=== PATIENT | female | born 1985 | race Asian ===

== ENCOUNTER 2022-05-28 08:47 | Inpatient (IN) ==
[2022-05-28] MEDS ORDERED: LIDOCAINE 1% LOCAL 20 ML VIAL INFIL PRN (09:51)
[2022-05-28] MEDS ORDERED: OXYTOCIN 30 UNITS/500 ML BAG IV PRN (09:51)
--- NOTE | 2022-05-28 09:55 | History & Physical Report ---
Date of Service May 28, 2022 Assessment & Plan (1) Elderly primigravida: Plan: Admit to L&D. Labs, EFM/toco, IV. Desires epidural. History of Present Illness Chief Complaint: contractions Primary Care Provider: NO PCP 36yo @ 39 09/05, presents with contractions since yesterday. About 5-8 min, but increasing in intensity. Yesterday, was seen at L&D and 1cm/100%. AMA Weekly NST's @ 36 weeks Hx thyroid issues 2018-pt states normal since Flu shot given 01/22/22 - [place] Allergies Allergy/AdvReac Type Severity Reaction Status Date / Time Penicillins Allergy Unknown Verified 05/28/22 08:57 shellfish derived Allergy Rash Verified 05/28/22 08:57 Home Medications Medication Instructions Recorded Confirmed Type prenat.vits,candy,htp-dhhn-aymdc 1 tab PO DAILY 05/28/22 05/28/22 History Patient History Medical History Miscarriage Thyroid disease Surgical History No history of previous surgery Family History Mother Diabetes Father Diabetes Grandmother (Paternal) Diabetes Denies family history of Ovarian cancer Breast cancer Colorectal cancer Social History Smoking Status: Never smoker Hx Alcohol Use: No Hx Substance Use: No Preferred Language: Mandarin Citizen Of [place] Communication Ability: Effective 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: No Beliefs That Will Affect Care: None marital status: marital status details: Sarah Salazar (29) [phone] Current Living Situation: Spouse Current Living Situation Comment: lives with spouse, no pets current occupational status: employed 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 Other Information That Helps Us Care for You: No Feels Safe at Home: Yes Safety Concerns: Feels Safe At This Time Assistive Devices: None Review of Systems All systems reviewed & are unremarkable except as noted in HPI & below Physical Exam Physical Exam: FHT Cat [address] [place] occasional SVE 6/100/-1, bulging membranes Constitutional: WD/WN, vitals as above Respiratory: normal respiratory effort, lungs clear to auscultation no respiratory distress Cardiovascular: Rate/Rhythm: regular rate and regular rhythm Gastrointestinal (Abdomen): Inspection/Auscultation: abdomen normal to inspection Percussion/Palpation: abdomen soft; abdomen nontender Gravid. No s/s chorio or abruption. Skin: no rashes, warm and dry Psychiatric: A+Ox3, euthymic affect Results & Data ([facility]) Vital Signs (Past 12 Hours) Vital Signs Temp Pulse Resp BP 05/28/22 08:55 36.8 C 102 H 20 123/60 Code Status & VTE Plan VTE Prophylaxis Plan VTE Prophylaxis will be ordered: No Coding Level of Care Code None Diagnoses Elderly primigravida O09.519
[2022-05-28] MEDS: LACTATED RINGER'S 1,000 ML IV PRN ×4 (10:00→23:55)
[2022-05-28] MEDS ORDERED: NALOXONE HCL 0.4 MG/1 ML VIAL/CARP IV PRN (10:07)
[2022-05-28] MEDS ORDERED: NALBUPHINE HCL INJ 10 MG/ML AMP IV PRN (10:07)
[2022-05-28] MEDS ORDERED: ePHEDrine sulfate 50 MG/ML AMP IV PRN (10:07)
[2022-05-28] MEDS ORDERED: NALOXONE HCL 1 MG in SODIUM CHLORIDE 0.9% 1000ML 1,000 ML IV PRN (10:07)
[2022-05-28] MEDS ORDERED: diphenhydrAMINE 50 MG/ML VIAL IV PRN (10:07)
[2022-05-28] MEDS ORDERED: fentaNYL 2MCG/ML ROPIVACAINE 1.25MG/ML 100 ML BAG EPI PRN (10:07)
[2022-05-28] MEDS ORDERED: ONDANSETRON INJ 2 MG/ML 2 ML VIAL IV PRN (10:07)
[2022-05-28] MEDS ORDERED: LIDOCAINE 2%/EPINEPHRINE 1:200,000 20 ML SDV ONE (10:10)
[2022-05-28] MEDS ORDERED: BUPIVACAINE 0.25% 30 ML VIAL ONE ×2 (10:10→23:13)
[2022-05-28] MEDS ORDERED: SODIUM CHLORIDE 0.9% INJ 10 ML VIAL ONE (10:10)
[2022-05-28] MEDS ORDERED: fentaNYL citrate 100 MCG/2 ML VIAL ONE (10:10)
[2022-05-28] MEDS ORDERED: ePHEDrine sulfate 50 MG/ML AMP ONE (10:10)
--- NOTE | 2022-05-28 10:10 | Anesthesiology Consultation ---
Date of Service May 28, 2022 Assessment & Plan (1) Encounter for pre-operative examination: Chart Review Chart Review: Patient NOT seen in Pre Admission Testing and Acceptable Risk for Labor Epidural Consults Requested none History Height/Weight Height: 5 ft 2 in Weight: 69.4 kg Allergies Allergy/AdvReac Type Severity Reaction Status Date / Time Penicillins Allergy Unknown Verified 05/28/22 08:57 shellfish derived Allergy Rash Verified 05/28/22 08:57 Medications Home Medications Medication Instructions Recorded Confirmed Last Taken prenat.vits,candy,lva-qxhu-zakfs 1 tab PO DAILY 05/28/22 05/28/22 05/28/22 07:00 Active Medications Generic Name Dose Route Start Last Admin Trade Name Freq PRN Reason Stop Dose Admin Lactated Ringer's 1,000 mls @ 125 mls/hr 05/28/22 09:51 05/28/22 10:00 Lr IV 05/30/22 09:50 999 mls/hr .Q8H PRN Administration L&D Protocol Protocol Past Medical History Medical History Miscarriage Thyroid disease Exercise / Class Metabolic Activity II 4-5 Yardwork/Stairs/Walk up hill Past Family History Family History Mother Diabetes Father Diabetes Grandmother (Paternal) Diabetes Denies family history of Ovarian cancer Breast cancer Colorectal cancer Past Surgical History Surgical History No history of previous surgery Past Anesthesia History No Hx of Anesthesia Complications and No Family Hx of Anesthesia Complications History of PONV No Hx of PONV and No Hx of Motion Sickness Social History Smoking Status: Never smoker Hx Alcohol Use: No Hx Substance Use: No substance use type: does not use Physical Exam Vital Signs Last Vital Signs Temp 36.8 C 05/28/22 08:55 Pulse 99 H 05/28/22 10:47 Resp 20 05/28/22 08:55 BP 116/71 05/28/22 10:47 Pulse Ox 97 05/28/22 10:43 Testing Laboratory Results 05/28/22 10:03
[2022-05-28] MEDS ORDERED: fentaNYL 2MCG/ML ROPIVACAINE 1.25MG/ML 100 ML BAG EPI ONE (10:11)
[2022-05-28 10:21] LABS: Hematocrit (blood only) 36.8 % (37.0-47.0); Mean Corpuscular Hemoglobin 33.2 pg (25.0-34.0); Mean Corpuscular Hgb Conc 35.3 g/dL (32.0-36.0); Mean Corpuscular Volume 93.9 fL (80.0-100.0); Mean Platelet Volume 10.7 fL (9.4-12.4); Platelet Count 236 K/uL (130-400); RDW Coefficient of Variation 12.9 % (11.5-14.5); RDW Standard Deviation 43.6 fL (36.4-46.3); Red Blood Count 3.92 M/uL (4.20-5.40); White Blood Count 10.84 K/ul (4.8-10.8)
[2022-05-28] MEDS ORDERED: CALCIUM CARBONATE 500 MG CHEWABLE TAB PO ONE (19:33)
[2022-05-28] MEDS ORDERED: NURSING L&D Epidural Breakthrough Pain Update ONE (22:03)
--- NOTE | 2022-05-28 23:04 | Labor Progress Brief Note ---
Date of Service May 28, 2022 Subjective Uncomfortable, feeling low back pain constantly. Also uncomfortable with contractions. FHT 150s, mod kati, +accels. Variable decels, not recurrent. SVE 7-8/100/+1 per RN Pt requesting epidural redose. As long as she continues to make cervical change, she requests to avoid pitocin for augmentation - I think this is reasonable, given that she has been making cervical change. Assessment & Plan Admission and Anticipated Discharge Date Admission Date: May 28, 2022 Results & Data ([facility]) Vital Signs (Past 12 Hours) Vital Signs Temp Pulse Resp BP Pulse Ox 05/28/22 22:59 95 05/28/22 22:59 104 H 05/28/22 22:54 96 05/28/22 22:54 100 H 05/28/22 22:49 96 05/28/22 22:49 100 H 05/28/22 22:30 18 05/28/22 22:30 18 05/28/22 22:44 97 05/28/22 22:44 96 H 05/28/22 22:39 97 05/28/22 22:39 100 H 05/28/22 22:34 96 05/28/22 22:34 104 H 05/28/22 22:28 96 05/28/22 22:28 101 H 05/28/22 22:23 96 05/28/22 22:23 91 H 05/28/22 22:20 88 05/28/22 22:20 119/64 05/28/22 22:18 95 05/28/22 22:18 95 H 05/28/22 22:00 20 05/28/22 22:00 20 05/28/22 22:13 95 05/28/22 22:13 90 05/28/22 22:08 97 05/28/22 22:08 90 05/28/22 22:06 93 H 05/28/22 22:06 116/79 05/28/22 22:03 95 05/28/22 22:03 93 H 05/28/22 21:58 97 05/28/22 21:58 88 05/28/22 21:53 96 05/28/22 21:53 88 05/28/22 21:50 93 H 05/28/22 21:50 123/66 05/28/22 21:48 96 05/28/22 21:48 93 H 05/28/22 21:43 98 05/28/22 21:43 93 H 05/28/22 21:30 18 05/28/22 21:30 18 05/28/22 21:38 98 05/28/22 21:38 93 H 05/28/22 21:36 88 05/28/22 21:36 119/70 05/28/22 21:33 96 05/28/22 21:33 88 05/28/22 21:28 96 05/28/22 21:28 88 05/28/22 21:23 96 05/28/22 21:23 96 H 05/28/22 21:19 88 05/28/22 21:19 107/65 05/28/22 21:18 96 05/28/22 21:18 85 05/28/22 21:13 96 05/28/22 21:13 85 05/28/22 21:08 96 05/28/22 21:08 86 05/28/22 21:04 88 05/28/22 21:04 110/69 05/28/22 21:03 97 05/28/22 21:03 81 05/28/22 21:00 18 05/28/22 21:00 37.3 C 18 05/28/22 20:58 96 05/28/22 20:58 83 05/28/22 20:53 96 05/28/22 20:53 84 05/28/22 20:51 83 05/28/22 20:51 112/68 05/28/22 20:48 96 05/28/22 20:48 88 05/28/22 20:43 94 05/28/22 20:43 97 H 05/28/22 20:38 95 05/28/22 20:38 85 05/28/22 20:35 85 05/28/22 20:35 121/73 05/28/22 20:33 95 05/28/22 20:33 89 05/28/22 20:30 18 05/28/22 20:30 18 05/28/22 20:28 96 05/28/22 20:28 99 H 05/28/22 20:23 98 05/28/22 20:23 84 05/28/22 20:18 98 05/28/22 20:18 89 05/28/22 20:13 97 05/28/22 20:13 81 05/28/22 20:08 97 05/28/22 20:08 81 05/28/22 20:06 78 05/28/22 20:06 117/70 05/28/22 20:00 18 05/28/22 20:00 18 05/28/22 20:03 96 05/28/22 20:03 90 05/28/22 19:58 95 05/28/22 19:58 87 05/28/22 19:53 94 05/28/22 19:53 82 05/28/22 19:50 87 05/28/22 19:50 111/60 05/28/22 19:48 95 05/28/22 19:48 80 05/28/22 19:43 95 05/28/22 19:43 83 05/28/22 19:38 96 05/28/22 19:38 89 05/28/22 19:33 95 05/28/22 19:33 87 05/28/22 19:34 88 05/28/22 19:34 110/64 05/28/22 19:28 96 05/28/22 19:28 83 05/28/22 19:23 95 05/28/22 19:23 83 05/28/22 19:19 88 05/28/22 19:19 106/62 05/28/22 19:18 98 05/28/22 19:18 93 H 05/28/22 19:13 96 05/28/22 19:13 85 05/28/22 19:08 96 05/28/22 19:08 81 05/28/22 19:00 18 05/28/22 19:00 37.1 C 18 05/28/22 19:03 96 05/28/22 19:03 84 05/28/22 19:04 81 05/28/22 19:04 111/64 05/28/22 18:58 96 05/28/22 18:58 95 H 05/28/22 18:53 97 05/28/22 18:53 86 05/28/22 18:49 88 05/28/22 18:49 114/68 05/28/22 18:48 96 05/28/22 18:48 83 05/28/22 18:43 98 05/28/22 18:43 87 05/28/22 18:38 95 05/28/22 18:38 87 05/28/22 18:34 91 H 05/28/22 18:34 122/71 05/28/22 18:33 97 05/28/22 18:33 86 05/28/22 18:30 20 05/28/22 18:30 20 05/28/22 18:28 95 05/28/22 18:28 96 H 05/28/22 18:23 93 05/28/22 18:23 85 05/28/22 18:22 85 05/28/22 18:22 115/68 05/28/22 18:18 93 05/28/22 18:18 88 05/28/22 18:13 92 05/28/22 18:13 89 05/28/22 18:08 94 05/28/22 18:08 85 05/28/22 18:07 88 05/28/22 18:07 118/68 05/28/22 18:03 94 05/28/22 18:03 92 H 05/28/22 17:58 93 05/28/22 17:58 90 05/28/22 17:53 94 05/28/22 17:53 88 05/28/22 17:51 87 05/28/22 17:51 123/67 05/28/22 17:30 20 05/28/22 17:30 20 05/28/22 17:48 94 05/28/22 17:48 89 05/28/22 17:00 20 05/28/22 17:00 20 05/28/22 17:43 95 05/28/22 17:43 86 05/28/22 17:38 97 05/28/22 17:38 86 05/28/22 17:35 92 H 05/28/22 17:35 113/68 05/28/22 17:33 95 05/28/22 17:33 85 05/28/22 17:28 96 05/28/22 17:28 91 H 05/28/22 17:23 97 05/28/22 17:23 91 H 05/28/22 17:21 89 05/28/22 17:21 103/61 05/28/22 17:18 96 05/28/22 17:18 97 H 05/28/22 17:13 96 05/28/22 17:13 88 05/28/22 17:08 96 05/28/22 17:08 92 H 05/28/22 17:06 92 H 05/28/22 17:06 114/79 05/28/22 17:03 96 05/28/22 17:03 91 H 05/28/22 16:58 96 05/28/22 16:58 105 H 05/28/22 16:30 20 05/28/22 16:30 37.1 C 20 05/28/22 16:00 20 05/28/22 16:00 20 05/28/22 16:53 96 05/28/22 16:53 99 H 05/28/22 16:51 94 H 05/28/22 16:51 127/75 05/28/22 16:48 95 05/28/22 16:48 92 H 05/28/22 16:43 97 05/28/22 16:43 93 H 05/28/22 16:38 97 05/28/22 16:38 91 H 05/28/22 16:34 93 H 05/28/22 16:34 114/62 05/28/22 16:33 96 05/28/22 16:33 89 05/28/22 16:28 94 05/28/22 16:28 87 05/28/22 16:23 96 05/28/22 16:23 86 05/28/22 16:18 95 05/28/22 16:18 88 05/28/22 16:19 90 05/28/22 16:19 110/60 05/28/22 16:13 94 05/28/22 16:13 91 H 05/28/22 16:08 96 05/28/22 16:08 86 05/28/22 16:04 89 05/28/22 16:04 109/64 05/28/22 16:03 96 05/28/22 16:03 86 05/28/22 15:58 95 05/28/22 15:58 87 05/28/22 15:53 96 05/28/22 15:53 89 05/28/22 15:50 91 H 05/28/22 15:50 123/71 05/28/22 15:48 96 05/28/22 15:48 91 H 05/28/22 15:43 97 05/28/22 15:43 96 H 05/28/22 15:38 98 05/28/22 15:38 98 H 05/28/22 15:36 107 H 05/28/22 15:36 118/75 05/28/22 15:30 20 05/28/22 15:30 20 05/28/22 15:33 96 05/28/22 15:33 93 H 05/28/22 15:28 94 05/28/22 15:28 95 H 05/28/22 15:23 94 05/28/22 15:23 89 05/28/22 15:19 95 H 05/28/22 15:19 116/63 05/28/22 15:18 95 05/28/22 15:18 96 H 05/28/22 15:13 94 05/28/22 15:13 97 H 05/28/22 15:08 92 05/28/22 15:08 91 H 05/28/22 15:04 82 05/28/22 15:04 114/56 L 05/28/22 15:03 95 05/28/22 15:03 86 05/28/22 15:00 20 05/28/22 15:00 20 05/28/22 14:58 95 05/28/22 14:58 80 05/28/22 14:53 97 05/28/22 14:53 83 05/28/22 14:49 88 05/28/22 14:49 107/68 05/28/22 14:48 96 05/28/22 14:48 90 05/28/22 14:43 95 05/28/22 14:43 86 05/28/22 14:38 96 05/28/22 14:38 92 H 05/28/22 14:30 20 05/28/22 14:30 37.1 C 20 05/28/22 14:35 89 05/28/22 14:35 120/72 05/28/22 14:00 20 05/28/22 14:00 20 05/28/22 14:33 95 05/28/22 14:33 91 H 05/28/22 13:30 20 05/28/22 13:30 20 05/28/22 14:28 95 05/28/22 14:28 102 H 05/28/22 14:23 95 05/28/22 14:23 88 05/28/22 14:20 94 05/28/22 14:20 90 05/28/22 14:20 115/68 05/28/22 14:18 97 05/28/22 14:18 95 H 05/28/22 14:13 95 05/28/22 14:14 94 05/28/22 14:13 94 H 05/28/22 14:14 95 H 05/28/22 14:08 94 05/28/22 14:08 90 05/28/22 14:08 94 05/28/22 14:08 88 05/28/22 14:06 86 05/28/22 14:06 110/62 05/28/22 14:03 94 05/28/22 14:03 87 05/28/22 14:02 94 05/28/22 14:02 91 H 05/28/22 13:58 95 05/28/22 13:58 87 05/28/22 13:55 94 05/28/22 13:55 96 H 05/28/22 13:53 95 05/28/22 13:53 90 05/28/22 13:51 89 05/28/22 13:51 110/67 05/28/22 13:48 95 05/28/22 13:48 89 05/28/22 13:43 96 05/28/22 13:43 85 05/28/22 13:30 20 05/28/22 13:30 20 05/28/22 13:38 95 05/28/22 13:39 94 05/28/22 13:38 88 05/28/22 13:39 91 H 05/28/22 13:36 86 05/28/22 13:36 115/68 05/28/22 13:33 95 05/28/22 13:33 83 05/28/22 13:32 94 05/28/22 13:32 91 H 05/28/22 13:28 96 05/28/22 13:28 90 05/28/22 13:23 97 05/28/22 13:23 87 05/28/22 13:19 85 05/28/22 13:19 116/69 05/28/22 13:18 97 05/28/22 13:18 83 05/28/22 13:13 96 05/28/22 13:13 88 05/28/22 13:08 95 05/28/22 13:08 89 05/28/22 13:00 20 05/28/22 13:00 20 05/28/22 13:04 86 05/28/22 13:04 109/64 05/28/22 13:03 96 05/28/22 13:03 82 05/28/22 13:01 94 05/28/22 13:01 86 05/28/22 12:58 97 05/28/22 12:58 83 05/28/22 12:53 96 05/28/22 12:53 84 05/28/22 12:49 84 05/28/22 12:49 108/61 05/28/22 12:48 95 05/28/22 12:48 83 05/28/22 12:46 94 05/28/22 12:46 87 05/28/22 12:43 95 05/28/22 12:43 86 05/28/22 12:38 93 05/28/22 12:38 88 05/28/22 12:34 84 05/28/22 12:34 107/59 L 05/28/22 12:33 94 05/28/22 12:33 85 05/28/22 12:28 94 05/28/22 12:28 89 05/28/22 12:25 94 05/28/22 12:25 89 05/28/22 12:23 96 05/28/22 12:23 87 05/28/22 12:20 84 05/28/22 12:20 113/62 05/28/22 12:19 94 05/28/22 12:19 88 05/28/22 12:18 95 05/28/22 12:18 88 05/28/22 12:00 18 05/28/22 12:00 18 05/28/22 12:13 96 05/28/22 12:13 83 05/28/22 12:10 92 05/28/22 12:10 92 H 05/28/22 12:08 96 05/28/22 12:08 97 H 05/28/22 12:06 90 05/28/22 12:06 125/73 05/28/22 12:03 98 05/28/22 12:03 100 H 05/28/22 11:58 96 05/28/22 11:58 95 H 05/28/22 11:55 94 05/28/22 11:55 97 H 05/28/22 11:53 95 05/28/22 11:53 97 H 05/28/22 11:49 99 H 05/28/22 11:49 110/64 05/28/22 11:48 96 05/28/22 11:48 100 H 05/28/22 11:43 95 05/28/22 11:43 93 H 05/28/22 11:38 96 05/28/22 11:38 92 H 05/28/22 11:37 89 05/28/22 11:37 119/69 05/28/22 11:33 96 05/28/22 11:33 93 H 05/28/22 11:30 20 05/28/22 11:30 20 05/28/22 11:28 96 05/28/22 11:28 92 H 05/28/22 11:23 97 05/28/22 11:23 94 H 05/28/22 11:21 91 H 05/28/22 11:21 122/67 05/28/22 11:18 95 05/28/22 11:19 94 05/28/22 11:18 93 H 05/28/22 11:19 91 H 05/28/22 11:13 96 05/28/22 11:13 94 H 05/28/22 11:08 96 05/28/22 11:08 99 H 05/28/22 11:04 108 H 05/28/22 11:04 103/56 L 05/28/22 11:03 97 05/28/22 11:03 110 H Coding Level of Care Code None
--- NOTE | 2022-05-28 23:36 | Communication Note ---
Date of Service: May 28, 2022 pt with increased pain. bolused 10ml of 0.25% bupivicaine in divided doses with pt on monitor. vss. pain much improved. cervix check by nurse showed pt was 9.5cm.
--- NOTE | 2022-05-29 00:48 | Labor Progress Brief Note ---
Date of Service May 29, 2022 Subjective Comfortable after epidural re-dose. FHT 150s, occasional late decels, not recurrent. Patient [place]. [place] [address]00/+1 Will start pushing. Assessment & Plan Admission and Anticipated Discharge Date Admission Date: May 28, 2022 Results & Data ([facility]) Vital Signs (Past 12 Hours) Vital Signs Temp Pulse Resp BP Pulse Ox 05/29/22 00:39 132 H 99 05/29/22 00:35 99 H 113/57 L 05/29/22 00:34 100 H 100 05/29/22 00:29 91 H 100 05/29/22 00:24 85 99 05/29/22 00:22 91 H 102/58 L 05/29/22 00:19 78 100 05/29/22 00:14 103 H 100 05/29/22 00:09 86 100 05/29/22 00:04 88 91/55 L 100 05/29/22 00:00 18 05/29/22 00:00 18 05/28/22 23:59 100 05/28/22 23:59 88 05/28/22 23:54 100 05/28/22 23:54 80 05/28/22 23:49 98 05/28/22 23:49 91 H 05/28/22 23:50 90 05/28/22 23:50 92/55 L 05/28/22 23:30 20 05/28/22 23:30 20 05/28/22 23:44 98 05/28/22 23:44 84 05/28/22 23:39 99 05/28/22 23:39 106 H 05/28/22 23:00 22 05/28/22 23:00 37.4 C 22 05/28/22 23:34 96 05/28/22 23:34 95 H 05/28/22 23:35 93 H 05/28/22 23:35 107/56 L 05/28/22 23:29 97 05/28/22 23:29 93 H 05/28/22 23:24 95 05/28/22 23:24 96 H 05/28/22 23:24 95 H 05/28/22 23:24 122/70 05/28/22 23:21 98 H 05/28/22 23:21 122/59 L 05/28/22 23:19 96 05/28/22 23:19 108 H 05/28/22 23:17 110 H 05/28/22 23:17 164/66 H 05/28/22 23:14 96 05/28/22 23:14 101 H 05/28/22 23:09 96 05/28/22 23:09 98 H 05/28/22 23:04 96 05/28/22 23:04 104 H 05/28/22 22:59 95 05/28/22 22:59 104 H 05/28/22 22:54 96 05/28/22 22:54 100 H 05/28/22 22:49 96 05/28/22 22:49 100 H 05/28/22 22:30 18 05/28/22 22:30 18 05/28/22 22:44 97 05/28/22 22:44 96 H 05/28/22 22:39 97 05/28/22 22:39 100 H 05/28/22 22:34 96 05/28/22 22:34 104 H 05/28/22 22:28 96 05/28/22 22:28 101 H 05/28/22 22:23 96 05/28/22 22:23 91 H 05/28/22 22:20 88 05/28/22 22:20 119/64 05/28/22 22:18 95 05/28/22 22:18 95 H 05/28/22 22:00 20 05/28/22 22:00 20 05/28/22 22:13 95 05/28/22 22:13 90 05/28/22 22:08 97 05/28/22 22:08 90 05/28/22 22:06 93 H 05/28/22 22:06 116/79 05/28/22 22:03 95 05/28/22 22:03 93 H 05/28/22 21:58 97 05/28/22 21:58 88 05/28/22 21:53 96 05/28/22 21:53 88 05/28/22 21:50 93 H 05/28/22 21:50 123/66 05/28/22 21:48 96 05/28/22 21:48 93 H 05/28/22 21:43 98 05/28/22 21:43 93 H 05/28/22 21:30 18 05/28/22 21:30 18 05/28/22 21:38 98 05/28/22 21:38 93 H 05/28/22 21:36 88 05/28/22 21:36 119/70 05/28/22 21:33 96 05/28/22 21:33 88 05/28/22 21:28 96 05/28/22 21:28 88 05/28/22 21:23 96 05/28/22 21:23 96 H 05/28/22 21:19 88 05/28/22 21:19 107/65 05/28/22 21:18 96 05/28/22 21:18 85 05/28/22 21:13 96 05/28/22 21:13 85 05/28/22 21:08 96 05/28/22 21:08 86 05/28/22 21:04 88 05/28/22 21:04 110/69 05/28/22 21:03 97 05/28/22 21:03 81 05/28/22 21:00 18 05/28/22 21:00 37.3 C 18 05/28/22 20:58 96 05/28/22 20:58 83 05/28/22 20:53 96 05/28/22 20:53 84 05/28/22 20:51 83 05/28/22 20:51 112/68 05/28/22 20:48 96 05/28/22 20:48 88 05/28/22 20:43 94 05/28/22 20:43 97 H 05/28/22 20:38 95 05/28/22 20:38 85 05/28/22 20:35 85 05/28/22 20:35 121/73 05/28/22 20:33 95 05/28/22 20:33 89 05/28/22 20:30 18 05/28/22 20:30 18 05/28/22 20:28 96 05/28/22 20:28 99 H 05/28/22 20:23 98 05/28/22 20:23 84 05/28/22 20:18 98 05/28/22 20:18 89 05/28/22 20:13 97 05/28/22 20:13 81 05/28/22 20:08 97 05/28/22 20:08 81 05/28/22 20:06 78 05/28/22 20:06 117/70 05/28/22 20:00 18 05/28/22 20:00 18 05/28/22 20:03 96 05/28/22 20:03 90 05/28/22 19:58 95 05/28/22 19:58 87 05/28/22 19:53 94 05/28/22 19:53 82 05/28/22 19:50 87 05/28/22 19:50 111/60 05/28/22 19:48 95 05/28/22 19:48 80 05/28/22 19:43 95 05/28/22 19:43 83 05/28/22 19:38 96 05/28/22 19:38 89 05/28/22 19:33 95 05/28/22 19:33 87 05/28/22 19:34 88 05/28/22 19:34 110/64 05/28/22 19:28 96 05/28/22 19:28 83 05/28/22 19:23 95 05/28/22 19:23 83 05/28/22 19:19 88 05/28/22 19:19 106/62 05/28/22 19:18 98 05/28/22 19:18 93 H 05/28/22 19:13 96 05/28/22 19:13 85 05/28/22 19:08 96 05/28/22 19:08 81 05/28/22 19:00 18 05/28/22 19:00 37.1 C 18 05/28/22 19:03 96 05/28/22 19:03 84 05/28/22 19:04 81 05/28/22 19:04 111/64 05/28/22 18:58 96 05/28/22 18:58 95 H 05/28/22 18:53 97 05/28/22 18:53 86 05/28/22 18:49 88 05/28/22 18:49 114/68 05/28/22 18:48 96 05/28/22 18:48 83 05/28/22 18:43 98 05/28/22 18:43 87 05/28/22 18:38 95 05/28/22 18:38 87 05/28/22 18:34 91 H 05/28/22 18:34 122/71 05/28/22 18:33 97 05/28/22 18:33 86 05/28/22 18:30 20 05/28/22 18:30 20 05/28/22 18:28 95 05/28/22 18:28 96 H 05/28/22 18:23 93 05/28/22 18:23 85 05/28/22 18:22 85 05/28/22 18:22 115/68 05/28/22 18:18 93 05/28/22 18:18 88 05/28/22 18:13 92 05/28/22 18:13 89 05/28/22 18:08 94 05/28/22 18:08 85 05/28/22 18:07 88 05/28/22 18:07 118/68 05/28/22 18:03 94 05/28/22 18:03 92 H 05/28/22 17:58 93 05/28/22 17:58 90 05/28/22 17:53 94 05/28/22 17:53 88 05/28/22 17:51 87 05/28/22 17:51 123/67 05/28/22 17:30 20 05/28/22 17:30 20 05/28/22 17:48 94 05/28/22 17:48 89 05/28/22 17:00 20 05/28/22 17:00 20 05/28/22 17:43 95 05/28/22 17:43 86 05/28/22 17:38 97 05/28/22 17:38 86 05/28/22 17:35 92 H 05/28/22 17:35 113/68 05/28/22 17:33 95 05/28/22 17:33 85 05/28/22 17:28 96 05/28/22 17:28 91 H 05/28/22 17:23 97 05/28/22 17:23 91 H 05/28/22 17:21 89 05/28/22 17:21 103/61 05/28/22 17:18 96 05/28/22 17:18 97 H 05/28/22 17:13 96 05/28/22 17:13 88 05/28/22 17:08 96 05/28/22 17:08 92 H 05/28/22 17:06 92 H 05/28/22 17:06 114/79 05/28/22 17:03 96 05/28/22 17:03 91 H 05/28/22 16:58 96 05/28/22 16:58 105 H 05/28/22 16:30 20 05/28/22 16:30 37.1 C 20 05/28/22 16:00 20 05/28/22 16:00 20 05/28/22 16:53 96 05/28/22 16:53 99 H 05/28/22 16:51 94 H 05/28/22 16:51 127/75 05/28/22 16:48 95 05/28/22 16:48 92 H 05/28/22 16:43 97 05/28/22 16:43 93 H 05/28/22 16:38 97 05/28/22 16:38 91 H 05/28/22 16:34 93 H 05/28/22 16:34 114/62 05/28/22 16:33 96 05/28/22 16:33 89 05/28/22 16:28 94 05/28/22 16:28 87 05/28/22 16:23 96 05/28/22 16:23 86 05/28/22 16:18 95 05/28/22 16:18 88 05/28/22 16:19 90 05/28/22 16:19 110/60 05/28/22 16:13 94 05/28/22 16:13 91 H 05/28/22 16:08 96 05/28/22 16:08 86 05/28/22 16:04 89 05/28/22 16:04 109/64 05/28/22 16:03 96 05/28/22 16:03 86 05/28/22 15:58 95 05/28/22 15:58 87 05/28/22 15:53 96 05/28/22 15:53 89 05/28/22 15:50 91 H 05/28/22 15:50 123/71 05/28/22 15:48 96 05/28/22 15:48 91 H 05/28/22 15:43 97 05/28/22 15:43 96 H 05/28/22 15:38 98 05/28/22 15:38 98 H 05/28/22 15:36 107 H 05/28/22 15:36 118/75 05/28/22 15:30 20 05/28/22 15:30 20 05/28/22 15:33 96 05/28/22 15:33 93 H 05/28/22 15:28 94 05/28/22 15:28 95 H 05/28/22 15:23 94 05/28/22 15:23 89 05/28/22 15:19 95 H 05/28/22 15:19 116/63 05/28/22 15:18 95 05/28/22 15:18 96 H 05/28/22 15:13 94 05/28/22 15:13 97 H 05/28/22 15:08 92 05/28/22 15:08 91 H 05/28/22 15:04 82 05/28/22 15:04 114/56 L 05/28/22 15:03 95 05/28/22 15:03 86 05/28/22 15:00 20 05/28/22 15:00 20 05/28/22 14:58 95 05/28/22 14:58 80 05/28/22 14:53 97 05/28/22 14:53 83 05/28/22 14:49 88 05/28/22 14:49 107/68 05/28/22 14:48 96 05/28/22 14:48 90 05/28/22 14:43 95 05/28/22 14:43 86 05/28/22 14:38 96 05/28/22 14:38 92 H 05/28/22 14:30 20 05/28/22 14:30 37.1 C 20 05/28/22 14:35 89 05/28/22 14:35 120/72 05/28/22 14:00 20 05/28/22 14:00 20 05/28/22 14:33 95 05/28/22 14:33 91 H 05/28/22 13:30 20 05/28/22 13:30 20 05/28/22 14:28 95 05/28/22 14:28 102 H 05/28/22 14:23 95 05/28/22 14:23 88 05/28/22 14:20 94 05/28/22 14:20 90 05/28/22 14:20 115/68 05/28/22 14:18 97 05/28/22 14:18 95 H 05/28/22 14:13 95 05/28/22 14:14 94 05/28/22 14:13 94 H 05/28/22 14:14 95 H 05/28/22 14:08 94 05/28/22 14:08 90 05/28/22 14:08 94 05/28/22 14:08 88 05/28/22 14:06 86 05/28/22 14:06 110/62 05/28/22 14:03 94 05/28/22 14:03 87 05/28/22 14:02 94 05/28/22 14:02 91 H 05/28/22 13:58 95 05/28/22 13:58 87 05/28/22 13:55 94 05/28/22 13:55 96 H 05/28/22 13:53 95 05/28/22 13:53 90 05/28/22 13:51 89 05/28/22 13:51 110/67 05/28/22 13:48 95 05/28/22 13:48 89 05/28/22 13:43 96 05/28/22 13:43 85 05/28/22 13:30 20 05/28/22 13:30 20 05/28/22 13:38 95 05/28/22 13:39 94 05/28/22 13:38 88 05/28/22 13:39 91 H 05/28/22 13:36 86 05/28/22 13:36 115/68 05/28/22 13:33 95 05/28/22 13:33 83 05/28/22 13:32 94 05/28/22 13:32 91 H 05/28/22 13:28 96 05/28/22 13:28 90 05/28/22 13:23 97 05/28/22 13:23 87 05/28/22 13:19 85 05/28/22 13:19 116/69 05/28/22 13:18 97 05/28/22 13:18 83 05/28/22 13:13 96 05/28/22 13:13 88 05/28/22 13:08 95 05/28/22 13:08 89 05/28/22 13:00 20 05/28/22 13:00 20 05/28/22 13:04 86 05/28/22 13:04 109/64 01/27/23 13:03 96 05/28/22 13:03 82 05/28/22 13:01 94 05/28/22 13:01 86 05/28/22 12:58 97 05/28/22 12:58 83 05/28/22 12:53 96 05/28/22 12:53 84 05/28/22 12:49 84 05/28/22 12:49 108/61 05/28/22 12:48 95 05/28/22 12:48 83 05/28/22 12:46 94 05/28/22 12:46 87 Coding Level of Care Code None
[2022-05-29] MEDS: LACTATED RINGER'S 1,000 ML IV PRN (00:59)
--- NOTE | 2022-05-29 01:53 | History & Physical Bridge Note ---
Date of Service May 29, 2022 History & Physical Bridge Note I have examined the patient, reviewed the History & Physical and in the interval since the performance of the History & Physical I have noted the following changes of clinical significance: While pushing, patient developed recurrent deep late decelerations, unresponsive to resuscitative measures. station 2+, pushing effort good, but still at least 30 minutes to 1 hour from delivery. I recommended that she proceed to , informed consent discussed, she agreed.
[2022-05-29] MEDS ORDERED: ceFAZolin 2000MG 2,000 MG/15 ML SYR IV ONE (01:56)
[2022-05-29] MEDS ORDERED: CITRIC ACID/SODIUM CITRATE 15 ML UDC PO ONE (01:56)
[2022-05-29] MEDS ORDERED: MoRPHine SULFATE PF 1 MG/ML 10 ML AMP/VIAL ONE (01:58)
[2022-05-29] MEDS ORDERED: LACTATED RINGER'S 1,000 ML IV SCH (02:00)
[2022-05-29] MEDS ORDERED: PHENYLEPHRINE 100MCG/ML 5ML SYR ONE (02:31)
[2022-05-29] MEDS ORDERED: ONDANSETRON INJ 2 MG/ML 2 ML VIAL ONE (02:31)
[2022-05-29] MEDS ORDERED: OXYTOCIN 10 UNITS/ML 10ML VIAL ONE (02:31)
[2022-05-29] MEDS ORDERED: ePHEDrine sulfate 50 MG/ML AMP IV PRN (02:41)
[2022-05-29] MEDS ORDERED: MoRPHine SULFATE 2 MG/ML CARP IV PRN (02:41)
[2022-05-29] MEDS ORDERED: NALOXONE HCL 0.08 MG in SYRINGE 1.8 ML IV PRN (02:41)
[2022-05-29] MEDS ORDERED: NALBUPHINE HCL INJ 10 MG/ML AMP IV PRN (02:41)
[2022-05-29] MEDS ORDERED: MoRPHine SULFATE PF 1 MG/ML 10 ML AMP/VIAL EPI ONE (02:41)
[2022-05-29] MEDS ORDERED: LACTATED RINGER'S 500 ML IV PRN (02:41)
[2022-05-29] MEDS ORDERED: ONDANSETRON INJ 2 MG/ML 2 ML VIAL IV PRN ×2 (02:41→20:42)
[2022-05-29] MEDS ORDERED: PROMETHAZINE HCL 6.25 MG in SODIUM CHLORIDE 0.9% 50 ML IV PRN (02:41)
[2022-05-29] MEDS ORDERED: diphenhydrAMINE 50 MG/ML VIAL IV PRN ×2 (02:41→20:42)
[2022-05-29] MEDS ORDERED: NALOXONE HCL 0.4 MG/1 ML VIAL/CARP IV PRN (02:41)
[2022-05-29] MEDS ORDERED: NALOXONE HCL 1 MG in SODIUM CHLORIDE 0.9% 1000ML 1,000 ML IV PRN (02:41)
[2022-05-29] MEDS ORDERED: DC INTRASPINAL MORPHINE SCH (02:45)
[2022-05-29] MEDS ORDERED: NO NARCOTICS OR SEDATIVES SCH (02:45)
[2022-05-29] MEDS ORDERED: SODIUM CHLORIDE 0.9% 1000ML 1,000 ML IV SCH (02:45)
--- NOTE | 2022-05-29 03:35 | Anesthesia Procedure Note ---
Date of Service May 29, 2022 Anesthesia Post Epidural Note Vital Signs Vital Signs: Temp Pulse Resp BP Pulse Ox 37.4 C 97 H 20 98/55 L 94 05/28/22 23:00 05/29/22 03:34 05/29/22 02:00 05/29/22 03:28 05/29/22 03:34 Pain Intensity Bilateral Abdomen: Pain Intensity: 5 Notes Mental Status: alert / awake / arousable and participated in evaluation Patient Amnestic to Procedure: No Nausea / Vomiting: adequately controlled Pain: adequately controlled Airway Patency, RR, SpO2: stable & adequate BP & HR: stable & adequate Hydration State: stable & adequate Neuraxial Anesthesia: was administered and sensory block is resolving Anesthetic Complications: no major complications apparent and Pt Satisfied with anesthetic care Epidural: Removed without complications and With tip intact
--- NOTE | 2022-05-29 03:36 | Anesthesiology Progress Note ---
Date of Service May 29, 2022 Anesthesia Post Procedure Vital Signs Vital Signs: Temp Pulse Resp BP Pulse Ox 05/29/22 03:34 97 H 94 05/29/22 03:31 101 H 97 05/29/22 03:28 97 H 98/55 L 05/29/22 03:26 98 H 92/50 L 97 05/29/22 01:00 22 05/29/22 01:00 22 05/29/22 01:30 20 05/29/22 01:30 20 05/29/22 02:05 102 H 100 05/29/22 02:04 100 H 117/71 05/29/22 02:00 104 H 20 100 05/29/22 01:55 102 H 100 05/29/22 01:50 111 H 130/71 96 05/29/22 01:45 103 H 99 05/29/22 01:40 145 H 98 05/29/22 01:34 123 H 98 05/29/22 01:33 110 H 76 L 05/29/22 01:29 102 H 100 05/29/22 01:24 102 H 99 05/29/22 01:19 100 05/29/22 01:19 139 H 05/29/22 01:19 118 H 131/64 83 L 05/29/22 01:14 130 H 100 05/29/22 01:13 105 H 85 L 05/29/22 01:09 103 H 99 05/29/22 01:00 05/29/22 01:00 22 05/29/22 01:05 113 H 125/60 05/29/22 01:04 134 H 99 05/29/22 00:59 107 H 99 05/29/22 00:54 108 H 99 05/29/22 00:49 112 H 98 05/29/22 00:50 115 H 84 L 05/29/22 00:44 95 H 99 05/29/22 00:39 132 H 99 05/29/22 00:35 99 H 113/57 L 05/29/22 00:34 100 H 100 05/29/22 00:29 91 H 100 05/29/22 00:24 85 99 05/29/22 00:22 91 H 102/58 L 05/29/22 00:19 78 100 05/29/22 00:14 103 H 100 05/29/22 00:09 86 100 05/29/22 00:04 88 91/55 L 100 05/29/22 00:00 18 05/29/22 00:00 18 05/28/22 23:59 100 05/28/22 23:59 88 05/28/22 23:54 100 05/28/22 23:54 80 05/28/22 23:49 98 05/28/22 23:49 91 H 05/28/22 23:50 90 05/28/22 23:50 92/55 L 05/28/22 23:30 20 05/28/22 23:30 20 05/28/22 23:44 98 05/28/22 23:44 84 05/28/22 23:39 99 05/28/22 23:39 106 H 05/28/22 23:00 22 05/28/22 23:00 37.4 C 22 05/28/22 23:34 96 05/28/22 23:34 95 H 05/28/22 23:35 93 H 05/28/22 23:35 107/56 L 05/28/22 23:29 97 05/28/22 23:29 93 H 05/28/22 23:24 95 05/28/22 23:24 96 H 05/28/22 23:24 95 H 05/28/22 23:24 122/70 05/28/22 23:21 98 H 05/28/22 23:21 122/59 L 05/28/22 23:19 96 05/28/22 23:19 108 H 05/28/22 23:17 110 H 05/28/22 23:17 164/66 H 05/28/22 23:14 96 05/28/22 23:14 101 H 05/28/22 23:09 96 05/28/22 23:09 98 H 05/28/22 23:04 96 05/28/22 23:04 104 H 05/28/22 22:59 95 05/28/22 22:59 104 H 05/28/22 22:54 96 05/28/22 22:54 100 H 05/28/22 22:49 96 05/28/22 22:49 100 H 05/28/22 22:30 18 05/28/22 22:30 18 05/28/22 22:44 97 05/28/22 22:44 96 H 05/28/22 22:39 97 05/28/22 22:39 100 H 05/28/22 22:34 96 05/28/22 22:34 104 H 05/28/22 22:28 96 05/28/22 22:28 101 H 05/28/22 22:23 96 05/28/22 22:23 91 H 05/28/22 22:20 88 05/28/22 22:20 119/64 05/28/22 22:18 95 05/28/22 22:18 95 H 05/28/22 22:00 20 05/28/22 22:00 20 05/28/22 22:13 95 05/28/22 22:13 90 05/28/22 22:08 97 05/28/22 22:08 90 05/28/22 22:06 93 H 05/28/22 22:06 116/79 05/28/22 22:03 95 05/28/22 22:03 93 H 05/28/22 21:58 97 05/28/22 21:58 88 05/28/22 21:53 96 05/28/22 21:53 88 05/28/22 21:50 93 H 05/28/22 21:50 123/66 05/28/22 21:48 96 05/28/22 21:48 93 H 05/28/22 21:43 98 05/28/22 21:43 93 H 05/28/22 21:30 18 05/28/22 21:30 18 05/28/22 21:38 98 05/28/22 21:38 93 H 05/28/22 21:36 88 05/28/22 21:36 119/70 05/28/22 21:33 96 05/28/22 21:33 88 05/28/22 21:28 96 05/28/22 21:28 88 05/28/22 21:23 96 05/28/22 21:23 96 H 05/28/22 21:19 88 05/28/22 21:19 107/65 05/28/22 21:18 96 05/28/22 21:18 85 05/28/22 21:13 96 05/28/22 21:13 85 05/28/22 21:08 96 05/28/22 21:08 86 05/28/22 21:04 88 05/28/22 21:04 110/69 05/28/22 21:03 97 05/28/22 21:03 81 05/28/22 21:00 18 05/28/22 21:00 37.3 C 18 05/28/22 20:58 96 05/28/22 20:58 83 05/28/22 20:53 96 05/28/22 20:53 84 05/28/22 20:51 83 05/28/22 20:51 112/68 05/28/22 20:48 96 05/28/22 20:48 88 05/28/22 20:43 94 05/28/22 20:43 97 H 05/28/22 20:38 95 05/28/22 20:38 85 05/28/22 20:35 85 05/28/22 20:35 121/73 05/28/22 20:33 95 05/28/22 20:33 89 05/28/22 20:30 18 05/28/22 20:30 18 05/28/22 20:28 96 05/28/22 20:28 99 H 05/28/22 20:23 98 05/28/22 20:23 84 05/28/22 20:18 98 05/28/22 20:18 89 05/28/22 20:13 97 05/28/22 20:13 81 05/28/22 20:08 97 05/28/22 20:08 81 05/28/22 20:06 78 05/28/22 20:06 117/70 05/28/22 20:00 18 05/28/22 20:00 18 05/28/22 20:03 96 05/28/22 20:03 90 05/28/22 19:58 95 05/28/22 19:58 87 05/28/22 19:53 94 05/28/22 19:53 82 05/28/22 19:50 87 05/28/22 19:50 111/60 05/28/22 19:48 95 05/28/22 19:48 80 05/28/22 19:43 95 05/28/22 19:43 83 05/28/22 19:38 96 05/28/22 19:38 89 05/28/22 19:33 95 05/28/22 19:33 87 05/28/22 19:34 88 05/28/22 19:34 110/64 05/28/22 19:28 96 05/28/22 19:28 83 05/28/22 19:23 95 05/28/22 19:23 83 05/28/22 19:19 88 05/28/22 19:19 106/62 05/28/22 19:18 98 05/28/22 19:18 93 H 05/28/22 19:13 96 05/28/22 19:13 85 05/28/22 19:08 96 05/28/22 19:08 81 05/28/22 19:00 18 05/28/22 19:00 37.1 C 18 05/28/22 19:03 96 05/28/22 19:03 84 05/28/22 19:04 81 05/28/22 19:04 111/64 05/28/22 18:58 96 05/28/22 18:58 95 H 05/28/22 18:53 97 05/28/22 18:53 86 05/28/22 18:49 88 05/28/22 18:49 114/68 05/28/22 18:48 96 05/28/22 18:48 83 05/28/22 18:43 98 05/28/22 18:43 87 05/28/22 18:38 95 05/28/22 18:38 87 05/28/22 18:34 91 H 05/28/22 18:34 122/71 05/28/22 18:33 97 05/28/22 18:33 86 05/28/22 18:30 20 05/28/22 18:30 20 05/28/22 18:28 95 05/28/22 18:28 96 H 05/28/22 18:23 93 05/28/22 18:23 85 05/28/22 18:22 85 05/28/22 18:22 115/68 05/28/22 18:18 93 05/28/22 18:18 88 05/28/22 18:13 92 05/28/22 18:13 89 05/28/22 18:08 94 05/28/22 18:08 85 05/28/22 18:07 88 05/28/22 18:07 118/68 05/28/22 18:03 94 05/28/22 18:03 92 H 05/28/22 17:58 93 05/28/22 17:58 90 05/28/22 17:53 94 05/28/22 17:53 88 05/28/22 17:51 87 05/28/22 17:51 123/67 05/28/22 17:30 20 05/28/22 17:30 20 05/28/22 17:48 94 05/28/22 17:48 89 05/28/22 17:00 20 05/28/22 17:00 20 05/28/22 17:43 95 05/28/22 17:43 86 05/28/22 17:38 97 05/28/22 17:38 86 05/28/22 17:35 92 H 05/28/22 17:35 113/68 05/28/22 17:33 95 05/28/22 17:33 85 05/28/22 17:28 96 05/28/22 17:28 91 H 05/28/22 17:23 97 05/28/22 17:23 91 H 05/28/22 17:21 89 05/28/22 17:21 103/61 05/28/22 17:18 96 05/28/22 17:18 97 H 05/28/22 17:13 96 05/28/22 17:13 88 05/28/22 17:08 96 05/28/22 17:08 92 H 05/28/22 17:06 92 H 05/28/22 17:06 114/79 05/28/22 17:03 96 05/28/22 17:03 91 H 05/28/22 16:58 96 05/28/22 16:58 105 H 05/28/22 16:30 20 05/28/22 16:30 37.1 C 20 05/28/22 16:00 20 05/28/22 16:00 20 05/28/22 16:53 96 05/28/22 16:53 99 H 05/28/22 16:51 94 H 05/28/22 16:51 127/75 05/28/22 16:48 95 05/28/22 16:48 92 H 05/28/22 16:43 97 05/28/22 16:43 93 H 05/28/22 16:38 97 05/28/22 16:38 91 H 05/28/22 16:34 93 H 05/28/22 16:34 114/62 05/28/22 16:33 96 05/28/22 16:33 89 05/28/22 16:28 94 05/28/22 16:28 87 05/28/22 16:23 96 05/28/22 16:23 86 05/28/22 16:18 95 05/28/22 16:18 88 05/28/22 16:19 90 05/28/22 16:19 110/60 05/28/22 16:13 94 05/28/22 16:13 91 H 05/28/22 16:08 96 05/28/22 16:08 86 05/28/22 16:04 89 05/28/22 16:04 109/64 05/28/22 16:03 96 05/28/22 16:03 86 05/28/22 15:58 95 05/28/22 15:58 87 05/28/22 15:53 96 05/28/22 15:53 89 05/28/22 15:50 91 H 05/28/22 15:50 123/71 05/28/22 15:48 96 05/28/22 15:48 91 H 05/28/22 15:43 97 05/28/22 15:43 96 H 05/28/22 15:38 98 05/28/22 15:38 98 H 05/28/22 15:36 107 H 05/28/22 15:36 118/75 05/28/22 15:30 20 05/28/22 15:30 20 05/28/22 15:33 96 05/28/22 15:33 93 H 05/28/22 15:28 94 05/28/22 15:28 95 H 05/28/22 15:23 94 05/28/22 15:23 89 05/28/22 15:19 95 H 05/28/22 15:19 116/63 05/28/22 15:18 95 05/28/22 15:18 96 H 05/28/22 15:13 94 05/28/22 15:13 97 H 05/28/22 15:08 92 05/28/22 15:08 91 H 05/28/22 15:04 82 05/28/22 15:04 114/56 L 05/28/22 15:03 95 05/28/22 15:03 86 05/28/22 15:00 20 05/28/22 15:00 20 05/28/22 14:58 95 05/28/22 14:58 80 05/28/22 14:53 97 05/28/22 14:53 83 05/28/22 14:49 88 05/28/22 14:49 107/68 05/28/22 14:48 96 05/28/22 14:48 90 05/28/22 14:43 95 05/28/22 14:43 86 05/28/22 14:38 96 05/28/22 14:38 92 H 05/28/22 14:30 20 05/28/22 14:30 37.1 C 20 05/28/22 14:35 89 05/28/22 14:35 120/72 05/28/22 14:00 20 05/28/22 14:00 20 05/28/22 14:33 95 05/28/22 14:33 91 H 05/28/22 13:30 20 05/28/22 13:30 20 05/28/22 14:28 95 05/28/22 14:28 102 H 05/28/22 14:23 95 05/28/22 14:23 88 05/28/22 14:20 94 05/28/22 14:20 90 05/28/22 14:20 115/68 05/28/22 14:18 97 05/28/22 14:18 95 H 05/28/22 14:13 95 05/28/22 14:14 94 05/28/22 14:13 94 H 05/28/22 14:14 95 H 05/28/22 14:08 94 05/28/22 14:08 90 05/28/22 14:08 94 05/28/22 14:08 88 05/28/22 14:06 86 05/28/22 14:06 110/62 05/28/22 14:03 94 05/28/22 14:03 87 05/28/22 14:02 94 05/28/22 14:02 91 H 05/28/22 13:58 95 05/28/22 13:58 87 05/28/22 13:55 94 05/28/22 13:55 96 H 05/28/22 13:53 95 05/28/22 13:53 90 05/28/22 13:51 89 05/28/22 13:51 110/67 05/28/22 13:48 95 05/28/22 13:48 89 05/28/22 13:43 96 05/28/22 13:43 85 05/28/22 13:30 20 05/28/22 13:30 20 05/28/22 13:38 95 05/28/22 13:39 94 05/28/22 13:38 88 05/28/22 13:39 91 H 05/28/22 13:36 86 05/28/22 13:36 115/68 05/28/22 13:33 95 05/28/22 13:33 83 05/28/22 13:32 94 05/28/22 13:32 91 H 05/28/22 13:28 96 05/28/22 13:28 90 05/28/22 13:23 97 05/28/22 13:23 87 05/28/22 13:19 85 05/28/22 13:19 116/69 05/28/22 13:18 97 05/28/22 13:18 83 05/28/22 13:13 96 05/28/22 13:13 88 05/28/22 13:08 95 05/28/22 13:08 89 05/28/22 13:00 20 05/28/22 13:00 20 05/28/22 13:04 86 05/28/22 13:04 109/64 05/28/22 13:03 96 05/28/22 13:03 82 05/28/22 13:01 94 05/28/22 13:01 86 05/28/22 12:58 97 05/28/22 12:58 83 05/28/22 12:53 96 05/28/22 12:53 84 05/28/22 12:49 84 05/28/22 12:49 108/61 05/28/22 12:48 95 05/28/22 12:48 83 05/28/22 12:46 94 05/28/22 12:46 87 05/28/22 12:43 95 05/28/22 12:43 86 05/28/22 12:38 93 05/28/22 12:38 88 05/28/22 12:34 84 05/28/22 12:34 107/59 L 05/28/22 12:33 94 05/28/22 12:33 85 05/28/22 12:28 94 05/28/22 12:28 89 05/28/22 12:25 94 05/28/22 12:25 89 05/28/22 12:23 96 05/28/22 12:23 87 05/28/22 12:20 84 05/28/22 12:20 113/62 05/28/22 12:19 94 05/28/22 12:19 88 05/28/22 12:18 95 05/28/22 12:18 88 05/28/22 12:00 18 05/28/22 12:00 18 05/28/22 12:13 96 05/28/22 12:13 83 05/28/22 12:10 92 05/28/22 12:10 92 H 05/28/22 12:08 96 05/28/22 12:08 97 H 05/28/22 12:06 90 05/28/22 12:06 125/73 05/28/22 12:03 98 05/28/22 12:03 100 H 05/28/22 11:58 96 05/28/22 11:58 95 H 05/28/22 11:55 94 05/28/22 11:55 97 H 05/28/22 11:53 95 05/28/22 11:53 97 H 05/28/22 11:49 99 H 05/28/22 11:49 110/64 05/28/22 11:48 96 05/28/22 11:48 100 H 05/28/22 11:43 95 05/28/22 11:43 93 H 05/28/22 11:38 96 05/28/22 11:38 92 H 05/28/22 11:37 89 05/28/22 11:37 119/69 05/28/22 11:33 96 05/28/22 11:33 93 H 05/28/22 11:30 20 05/28/22 11:30 20 05/28/22 11:28 96 05/28/22 11:28 92 H 05/28/22 11:23 97 05/28/22 11:23 94 H 05/28/22 11:21 91 H 05/28/22 11:21 122/67 05/28/22 11:18 95 05/28/22 11:19 94 05/28/22 11:18 93 H 05/28/22 11:19 91 H 05/28/22 11:13 96 05/28/22 11:13 94 H 05/28/22 11:08 96 05/28/22 11:08 99 H 05/28/22 11:04 108 H 05/28/22 11:04 103/56 L 05/28/22 11:03 97 05/28/22 11:03 110 H 05/28/22 11:00 20 05/28/22 11:00 36.9 C 20 05/28/22 11:02 98 H 05/28/22 11:02 112/61 05/28/22 11:01 96 H 05/28/22 11:01 121/61 05/28/22 10:58 97 05/28/22 10:58 102 H 05/28/22 10:58 105 H 05/28/22 10:58 106/55 L 05/28/22 10:56 100 H 05/28/22 10:56 108/59 L 05/28/22 10:53 97 05/28/22 10:53 105 H 05/28/22 10:54 103 H 05/28/22 10:54 109/63 05/28/22 10:52 105 H 05/28/22 10:52 112/66 05/28/22 10:50 96 H 05/28/22 10:50 115/67 05/28/22 10:48 97 05/28/22 10:48 99 H 05/28/22 10:48 118/69 05/28/22 10:48 20 05/28/22 10:48 20 05/28/22 10:47 99 H 05/28/22 10:47 116/71 05/28/22 10:43 97 05/28/22 10:43 96 H 05/28/22 10:38 98 05/28/22 10:38 100 H 05/28/22 10:33 100 05/28/22 10:33 114 H 05/28/22 08:55 36.8 C 102 H 20 123/60 Pain Intensity Bilateral Abdomen: Pain Intensity: 5 Transfer of Care Handoff Completed per policy Notes Mental Status: alert / awake / arousable and participated in evaluation Patient Amnestic to Procedure: No Nausea / Vomiting: adequately controlled Pain: adequately controlled Airway Patency, RR, SpO2: stable & adequate BP & HR: stable & adequate Hydration State: stable & adequate Neuraxial Anesthesia: was administered and sensory block is resolving Anesthetic Complications: no major complications apparent and Pt Satisfied with anesthetic care
--- NOTE | 2022-05-29 03:39 | Operative Report ---
PG Post Operative Report Pre & Post Diagnosis Operation Date: 05/29/22 02:00 Pre-Op Diagnosis: intolerance to labor Post-Op Diagnosis: same as pre-op I identified the patient and participated in the time-out.: Yes Procedure Operation Date: 05/29/22 02:00 Primary low transverse section Surgeon Madeline Todd, DO Acls Specialist S Forr RN Estimated Blood Loss 800 Findings Consistent with Post-Op Diagnosis Viable female , APGARS 8/9. Weight pending, please see nursery records. Nuchal x 2. Normal appearing uterus, fallopian tubes, ovaries. Specimens cord blood, cord gas, placenta Drains mccann - bloody urine, present since placement preop Anesthesia Type Labor Epidural Complications none Disposition Accompanied Patient To Recovery: No Disposition: L&D Indications 36yo @ 38 6/7, came to L&D with contractions, progressed in labor until complete dilation. Began to have worsening late and prolonged decelerations wi th pushing. Since delivery was not likely to be within 30 minutes, I advised delivery by section. Description of Procedure The patient was seen in her labor and delivery room, risks benefits and alternatives to surgery were reviewed. Informed consent obtained. Questions were answered. She was taken to the operating room, spinal anesthesia was administered. She was then prepared and draped in the usual sterile fashion in the supine position with a leftward tilt. Timeout was confirmed. A Pfannenstiel skin incision was made with a scalpel, and carried through to the underlying layer of fascia. Fascia was nicked at midline, and this incision was extended bilaterally. The superior aspect of the fascial incision was grasped with Camille clamps x2, elevated off the underlying rectus abdominis muscles, and dissected sharply and bluntly. In similar fashion, the inferior aspect of the fascial incision was dissected. The rectus abdominis muscles were , and the peritoneum was entered bluntly digitally. This was extended bilaterally. The bladder flap was taken down carefully using Metzenbaum scissors. Using a new scalpel, a low transverse uterine incision was created. Clear amniotic fluid noted. The was delivered from a cephalic presentation, with compound hand. The hand and then head delivered, followed by shoulders and body. Spontaneous cry on the field. Nuchal x 2, reduced. The cord was doubly clamped and cut, and the infant was handed off to the waiting elevator examiner and adjuster. A segment was retained for cord gases. Cord blood was obtained. The placenta was delivered spontaneously intact. The uterus was exteriorized, and cleared of all clots and debris. The hysterotomy incision was reapproximated using 0 Vicryl in a running locked stitch. A second layer of the same suture was used to imbricate the incision. Posterior uterus was evaluated and normal. The uterus was returned to the abdomen, and gutters were cleared of clots and debris. Excellent hemostasis was observed. The fascial incision was reapproximated using 0 Vicryl in a running stitch. The subcutaneous tissue was irrigated, and reapproximated using 2-0 plain gut in a running stitch. The skin was reapproximated using 4-0 Vicryl in a running subcuticular stitch. Steri-Strips and a bandage were applied. The patient tolerated the procedure well, and will be taken to the recovery area in stable and good condition. Sponge, instrument, needle counts correct x 2 at conclusion of case. I attest to the content of the Intraoperative Record and any orders documented therein. Any exceptions are noted below. OB Procedure Charges 58621
[2022-05-29] MEDS ORDERED: MAGNESIUM HYDROXIDE SUSP 30 ML UDC PO PRN (03:46)
[2022-05-29] MEDS ORDERED: BENZOCAINE 20% AER SPR 82.5 GM CAN EXT PRN (03:46)
[2022-05-29] MEDS ORDERED: DIPHTHERIA/TETANUS/PERTUSSIS 0.5mL SYR/VIAL (Age 7+yrs) IM ONE (03:46)
[2022-05-29] MEDS ORDERED: HYDROCORTISONE ACETATE 25 MG SUPP PR PRN (03:46)
[2022-05-29] MEDS ORDERED: SENNA 8.6 MG TAB PO PRN (03:46)
[2022-05-29 04:00] LABS: Base Excess Cord Arterial Bld -7.4 mEq/L (-9-1.8); CO2 Cord Arterial Blood 50 mmHg (39.1-73.5); HCO3 Cord Arterial Blood 21 mmol/L (19.7-28.5); Oxygen Sat Cord Arterial Blood < 60.0 % (<60); PO2 Cord Arterial Blood 15 mmHg (4.1-31.7); pH Cord Arterial Blood 7.22 (7.1-7.38)
[2022-05-29 04:01] LABS: Base Excess Cord Venous Blood -6.6 mEq/L (-7.7-1.9); Cord Venous Blood HCO3 20 mmol/L (18.4-26.8); Cord Venous Blood PCO2 44 mmHg (30.4-57.2); Cord Venous Blood PO2 25 mmHg (14.1-43.3); Cord Venous Blood pH 7.27 (7.20-7.44); O2 Saturation Cord Venous Bld < 60.0 % (<68)
[2022-05-29] MEDS: OXYTOCIN 30 UNITS in LACTATED RINGER'S 1,000 ML IV SCH ×2 (05:33→14:16)
[2022-05-29] MEDS: KETOROLAC 30 MG/ML VIAL IV PRN ×2 (06:57→20:07)
[2022-05-29] MEDS: FERROUS SULFATE 325 MG TAB PO SCH (08:04)
[2022-05-29] MEDS: DOCUSATE SODIUM 100 MG CAP PO SCH ×2 (08:04→20:07)
[2022-05-29] MEDS: PRENATAL VITAMIN 1 TAB PO SCH (08:05)
[2022-05-29] MEDS: SIMETHICONE 80 MG CHEW PO SCH ×4 (08:05→20:07)
[2022-05-29] MEDS: LACTATED RINGER'S 1,000 ML IV SCH ×2 (11:08→12:29)
[2022-05-29] MEDS ORDERED: diphenhydrAMINE Capsule 25 MG CAP PO PRN (20:42)
[2022-05-29] MEDS ORDERED: PROMETHAZINE HCL 25 MG in SODIUM CHLORIDE 0.9% 50 ML IV PRN (20:42)
[2022-05-29] MEDS ORDERED: KETOROLAC 30 MG/ML VIAL IV PRN (20:42)
[2022-05-29] MEDS: oxyCODONE/ACETAMINOPHEN 5mg/325mg TAB PO PRN (23:45)
[2022-05-30] MEDS: IBUPROFEN 600 MG TAB PO PRN ×5 (03:07→22:02)
[2022-05-30] MEDS: oxyCODONE/ACETAMINOPHEN 5mg/325mg TAB PO PRN ×5 (03:34→22:02)
[2022-05-30 06:11] LABS: Basophils # (auto) 0.05 K/uL (0-0.2); Basophils % (auto) 0.4 %; Eosinophils # (auto) 0.21 K/uL (0-0.50); Eosinophils % (auto) 1.8 %; Hematocrit (blood only) 26.4 % (37.0-47.0); Hemoglobin 9.1 g/dl (12.0-16.0); Immature Granulocytes # (auto) 0.07 K/uL (0.01-0.20); Immature Granulocytes % (auto) 0.6 %; Lymphocytes # (auto) 1.16 K/uL (1.2-3.4); Lymphocytes % (auto) 9.7 %; Mean Corpuscular Hemoglobin 33.3 pg (25.0-34.0); Mean Corpuscular Hgb Conc 34.5 g/dL (32.0-36.0); Mean Corpuscular Volume 96.7 fL (80.0-100.0); Mean Platelet Volume 10.2 fL (9.4-12.4); Monocytes # (auto) 0.62 K/uL (0.11-0.59); Monocytes % (auto) 5.2 %; Neutrophils # (auto) 9.85 K/uL (1.40-6.50); Neutrophils % (auto) 82.3 %; Platelet Count 151 K/uL (130-400); RDW Standard Deviation 45.4 fL (36.4-46.3); Red Blood Count 2.73 M/uL (4.20-5.40); White Blood Count 11.96 K/ul (4.8-10.8)
--- NOTE | 2022-05-30 07:37 | Obstetrical Progress Note ---
Date of Service May 30, 2022 Assessment & Plan (1) Encounter for care and examination after delivery: 36 yo POD 1 from pLTCS, doing well -Meeting all pp milestones -B+/rubella immune/formula feeding -f/u 6 weeks for appt, continue routine pp care Subjective Ambulation: ambulating normally Voiding: no voiding problems Passing Gas:: Yes Diet Tolerance:: regular diet Lochia:: Small Feeding Type:: bottle feeding Pain well managed with medication Review of Systems Denies fevers, chills, n/v, LIM, CP, SOB Physical Exam Constitutional WD/WN, vitals as above no acute distress Respiratory normal respiratory effort, lungs clear to auscultation Cardiovascular RRR, no murmur, no edema Gastrointestinal (Abdomen) Percussion/Palpation: abdomen soft; abdomen nontender fundus firm at umbilicus and NT, incision c/d/i Musculoskeletal BLE symmetric, nonerythematous, nontender Results & Data ([facility] Vital Signs (Past 12 Hours) Vital Signs Temp Pulse Resp BP Pulse Ox O2 Del Method 05/30/22 07:10 98.1 F 82 16 104/69 95 Room Air 05/29/22 23:02 98.4 F 91 H 18 98/64 L 95 Room Air 05/29/22 19:35 98.6 F 99 H 16 111/71 98 Room Air 05/29/22 20:15 16 95 05/29/22 19:35 16 98
[2022-05-30] MEDS: SIMETHICONE 80 MG CHEW PO SCH ×4 (08:32→22:02)
[2022-05-30] MEDS: DOCUSATE SODIUM 100 MG CAP PO SCH ×2 (08:32→22:02)
[2022-05-30] MEDS: FERROUS SULFATE 325 MG TAB PO SCH (08:32)
[2022-05-30] MEDS: PRENATAL VITAMIN 1 TAB PO SCH (08:32)
[2022-05-30] MEDS ORDERED: bisacodyL 5 MG TABEC PO SCH (20:00)
[2022-05-31] MEDS ORDERED: bisacodyL 10 MG SUPP PR PRN
--- NOTE | 2022-05-31 05:32 | Obstetrical Progress Note ---
Date of Service <Trena Milan - Last Filed: 05/31/22 06:53> May 31, 2022 Assessment & Plan <Trena Milan - Last Filed: 05/31/22 06:53> (1) Encounter for care and examination after delivery: continue OOB, ambulation, diet as tolerated <Danae Mclaughlin MD - Last Filed: 05/31/22 07:13> (1) Encounter for care and examination after delivery: Subjective <Trena MilanDO - Last Filed: 05/31/22 06:53> 36 y/o female who is POD #2 following delivery at 38 6/7 weeks. She reports feeling well overall this morning. Mild abdominal cramping pain well managed on analgesics. Voiding. Tolerating meals overnight and able to ambulate some. Has some persistent lochia with some improvement this morning. Currently trying to breast feed, feels like milk hasn't come in yet. Review of Systems Denies fever, chills, sweats Denies shortness of breath, difficulty breathing, chest pain, palpitations, chest pressure. Denies breast pain. Denies dysuria. Denies headache or changes in vision. Physical Exam <Trena MilanDO - Last Filed: 05/31/22 06:53> General: Alert, oriented. No acute distress. Cardiac: Regular rate and rhythm, no murmurs/rubs/gallops. Respiratory: Clear to auscultation bilaterally a/p, no wheezes/rales/rhonchi. No increased work of breathing. Symmetrical chest rise. No respiratory distress. Abdomen: Soft, nontender, nondistended. Uterus: Uterine fundus firm, palpable 1 cm below umbilicus. Surgical scar clean and healing well. Lower Extremities: No lower extremity edema or swelling. Results & Data ([facility]) <Trena MilanDO - Last Filed: 05/31/22 06:53> Vital Signs (Past 12 Hours) Vital Signs Temp Pulse Resp BP Pulse Ox O2 Del Method 05/30/22 23:15 36.5 C 78 18 107/71 96 Room Air 05/30/22 20:13 36.6 C 70 16 113/73 99 Room Air <Danae Mclaughlin MD - Last Filed: 05/31/22 07:13> Co-Signing Physician Notes Resident Physician Supervision Note: I interviewed and examined the patient. Discussed with Dr. Milan and agree with findings and plan as documented in the note. Any exceptions or clarifications are listed here: POD2 s/p pLTCS, doing well. Some back discomfort improved with stretching and pain meds. VSS, exam benign and wnl. Continue routine pp care Documented By: Danae Mclaughlin MD Resident Activity Tracking <Trena Milan DO - Last Filed: 05/31/22 06:53> Resident Involvement: Resident Care Provided Care Provided: OB Delivery (post )
[2022-05-31] MEDS: oxyCODONE/ACETAMINOPHEN 5mg/325mg TAB PO PRN ×4 (05:44→20:44)
[2022-05-31] MEDS: IBUPROFEN 600 MG TAB PO PRN ×4 (05:44→20:43)
[2022-05-31 06:48] LABS: Hematocrit (blood only) 25.4 % (37.0-47.0); Hemoglobin 8.6 g/dl (12.0-16.0)
[2022-05-31] MEDS: SIMETHICONE 80 MG CHEW PO SCH ×4 (08:33→20:44)
[2022-05-31] MEDS: PRENATAL VITAMIN 1 TAB PO SCH (08:33)
[2022-05-31] MEDS: FERROUS SULFATE 325 MG TAB PO SCH (08:34)
[2022-05-31] MEDS: DOCUSATE SODIUM 100 MG CAP PO SCH ×2 (08:34→20:43)
[2022-06-01] MEDS: oxyCODONE/ACETAMINOPHEN 5mg/325mg TAB PO PRN ×3 (00:48→09:59)
[2022-06-01] MEDS: IBUPROFEN 600 MG TAB PO PRN ×4 (04:49→22:55)
--- NOTE | 2022-06-01 06:37 | Obstetrical Progress Note ---
Date of Service <Trena Milan DO - Last Filed: 06/01/22 07:21> June 01, 2022 Assessment & Plan <Trena Milan DO - Last Filed: 06/01/22 07:21> (1) Encounter for care and examination after delivery: continue OOB, ambulation, diet as tolerated <Brigida Ibarhim MD, FACOG - Last Filed: 06/01/22 07:41> (1) Encounter for care and examination after delivery: Subjective <Trena Milan - Last Filed: 06/01/22 07:21> 36 y/o female who is POD #3 following delivery at 38 6/7 weeks. She reports feeling well overall this morning, still having some moderate incisional pain. Mild abdominal cramping pain well managed on analgesics. Voiding. Tolerating meals overnight and able to ambulate some. Has some persis tent lochia with some improvement this morning. Currently trying to breast feed, feels like milk hasn't come in yet.Has been pumping Review of Systems As per above Physical Exam <Trena Milan DO - Last Filed: 06/01/22 07:21> General: Alert, oriented. No acute distress. Cardiac: Regular rate and rhythm, no murmurs/rubs/gallops. Respiratory: Clear to auscultation bilaterally a/p, no wheezes/rales/rhonchi. No increased work of breathing. Symmetrical chest rise. No respiratory distress. Abdomen: Soft, nontender, nondistended. Uterus: Uterine fundus firm, palpable 1 cm above umbilicus, bladder likely full. Surgical scar clean and healing well, covered in sterie strips. Skin: Some redness on anterior abdomen Lower Extremities: No lower extremity edema or swelling. Results & Data ([facility]) <Trena Milan DO - Last Filed: 06/01/22 07:21> Vital Signs (Past 12 Hours) Vital Signs Temp Pulse Resp BP Pulse Ox O2 Del Method 05/31/22 23:15 36.9 C 80 18 113/72 99 Room Air 05/31/22 19:45 Room Air 05/31/22 19:45 36.6 C 84 18 116/74 97 Room Air <Brigida Ibrahim MD, FACOG - Last Filed: 06/01/22 07:41> Co-Signing Physician Notes Resident Physician Supervision Note: I was present with Dr. Milan during the history and exam. I discussed the case with the resident and agree with the findings and plan as documented in the note. Any exceptions or clarifications are listed here: doing ok this am, trying to get used to nursing, eating, ambulating, voiding without problem, pain meds work for pain. she wants to go home today. abd soft, ff appropriately tender 1cm above u but has not voided for couple hours. incision c/d/i with steris. erythema of skin in distribution of prep. pod#3 s/p c/s. doing better today. mood ok. breast/rhpos/ri. desires dc home, instructions reviewed. checked on papdmp and script sent. rec 2wks check with jyoti incision and mood. pt aware. will also need to call to sched her 6wk pp check. Documented By: Brigida Ibrahim MD, FACOG Resident Activity Tracking <Trena Milan DO - Last Filed: 06/01/22 07:21> Resident Involvement: Resident Care Provided Care Provided: OB Delivery (post )
[2022-06-01] MEDS: PRENATAL VITAMIN 1 TAB PO SCH (08:23)
[2022-06-01] MEDS: SIMETHICONE 80 MG CHEW PO SCH ×4 (08:23→21:07)
[2022-06-01] MEDS: FERROUS SULFATE 325 MG TAB PO SCH (08:23)
[2022-06-01] MEDS: DOCUSATE SODIUM 100 MG CAP PO SCH ×2 (10:47→21:07)
[2022-06-02] MEDS: oxyCODONE/ACETAMINOPHEN 5mg/325mg TAB PO PRN ×2 (02:44→06:56)
--- NOTE | 2022-06-02 06:00 | Obstetrical Progress Note ---
Date of Service <Trena Cecilia Milan DO - Last Filed: 06/02/22 07:17> June 02, 2022 Assessment & Plan <Trena SMaggy Milan DO - Last Filed: 06/02/22 07:17> (1) Encounter for care and examination after delivery: continue OOB, ambulation, diet as tolerated Plan for 2 week f/u with Dr. Todd for incision and then 6 week post f/u some concerns with social situation will consult social welfare research worker <Adilene Rasmussen MD, FACOG - Last Filed: 06/02/22 07:18> (1) Encounter for care and examination after delivery: Subjective <Trena Milan DO - Last Filed: 06/02/22 07:17> 36 y/o female who is POD #4 following delivery at 38 6/7 weeks. She reports feeling well overall this morning, still having some moderate incisional pain. Initially was well controlled this morning, had more pain upon trying to get up. Mild abdominal cramping pain well managed on analgesics. Voiding. Tolerating meals overnight and able to ambulate some. Has some persistent lochia with some improvement this morning. Currently trying to breast feed and has been pumping and supplementing with formula. Review of Systems Denies fever, chills, sweats Denies shortness of breath, difficulty breathing, chest pain, palpitations, chest pressure. Denies breast pain. Denies dysuria. Denies headache or changes in vision. Physical Exam <Trena Milan DO - Last Filed: 06/02/22 07:17> General: Alert, oriented. No acute distress. Cardiac: Regular rate and rhythm, no murmurs/rubs/gallops. Respiratory: Clear to auscultation bilaterally a/p, no wheezes/rales/rhonchi. No increased work of breathing. Symmetrical chest rise. No respiratory distress. Abdomen: Soft, nontender, nondistended. Uterus: Uterine fundus firm, palpable 1 umbilicus. Surgical scar clean and healing well, covered in steri strips. Skin: Some redness on anterior abdomen Lower Extremities: No lower extremity edema or swelling. Results & Data ([facility]) <Trena Milan DO - Last Filed: 06/02/22 07:17> Vital Signs (Past 12 Hours) Vital Signs Temp Pulse Resp BP O2 Del Method 06/01/22 22:56 36.7 C 87 18 125/80 Room Air 06/01/22 21:05 36.7 C 87 18 126/75 Room Air <Adilene Rasmussen MD, FACOG - Last Filed: 06/02/22 07:18> Co-Signing Physician Notes Resident Physician Supervision Note: I was present with Dr. Milan during the history and exam. I discussed the case with the resident and agree with the findings and plan as documented in the note. Any exceptions or clarifications are listed here: [None] Documented By: Adilene Rasmussen MD, FACOG Resident Activity Tracking <Trena Milan DO - Last Filed: 06/02/22 07:17> Resident Involvement: Resident Care Provided Care Provided: OB Delivery (Post )
[2022-06-02] MEDS: IBUPROFEN 600 MG TAB PO PRN (06:10)
[2022-06-02] MEDS: FERROUS SULFATE 325 MG TAB PO SCH (08:33)
[2022-06-02] MEDS: DOCUSATE SODIUM 100 MG CAP PO SCH (08:33)
[2022-06-02] MEDS: PRENATAL VITAMIN 1 TAB PO SCH (08:34)
[2022-06-02] MEDS: SIMETHICONE 80 MG CHEW PO SCH (08:34)
--- NOTE | 2022-06-09 09:07 | Discharge Summary ---
Date of Service June 09, 2022 Admission HPI Per Admitting Provider 36yo @ 38 09/05, presents with contractions since yesterday. About 5-8 min, but increasing in intensity. Yesterday, was seen at [facility] and 1cm/100%. AMA Weekly NST's @ 36 weeks Hx thyroid issues 2018-pt states normal since Flu shot given 01/22/22 - [place] Discharge Data Consultations 05/28/22 09:51 Consult Anesthesiology Stat Procedures Performed Operation Date: 05/29/22 02:00 Actual Procedures p Section in LD for the of a viable female child at 0229(Bilateral) - Madeline Todd DO Hospital Course (1) Elderly primigravida: Admitted in labor, delivered by , DC home POD4. Please see chart for further details. Coding Level of Care Code None Diagnoses Elderly primigravida O09.519
== END 2022-06-02 14:31 | disposition home health service (06) | DRG 788 ==
LOC: OPB 08:47 → 4S1 08:48 → 4E2 05-29 06:50
DX: Z88.0 Allergy status to penicillin; O76 Abnormality in fetal heart rate and rhythm complicating labor and delivery; O99.893 Other specified diseases and conditions complicating puerperium; Z91.013 Allergy to seafood; Z3A.38 38 weeks gestation of pregnancy; O69.81X0 Labor and delivery complicated by cord around neck, without compression, not applicable or unspecified; O09.513 Supervision of elderly primigravida, third trimester; Z60.9 Problem related to social environment, unspecified; O32.6XX0 Maternal care for compound presentation, not applicable or unspecified; Z79.899 Other long term (current) drug therapy; Z37.0 Single live birth